=== PATIENT | male | born 1965 | race Caucasian/White ===

== ENCOUNTER → 2016-11-24 | Outpatient (CLI) | payer OTHER ==
[~2016-11-24] MED LIST: ALBU17AE3 IH; ASPI-892 PO; ATOR10TA66 PO; CEPH-38 PO; CEPH500C PO; CHOL500050 PO; COLC0.6T7 PO; CYCL10TA9 PO; DOXY100C2 PO; GABA-486 PO; HYDR-34 PO; HYDR25TA4 PO; HYDR28CR10 TP; IBP800T PO; LISI10TA PO; LOVA40TA2 PO; NAPR-243 PO; NAPR550T PO; PNT40TEC PO; allopurinol
== END ==
LOC: RAD 15:02
PROVIDERS: ATTEND Nurse Practitioner Community Health
DX: S49.91XD Unspecified injury of right shoulder and upper arm, subsequent encounter (principal); X58.XXXA Exposure to other specified factors, initial encounter; Y99.8 Other external cause status

== ENCOUNTER → 2019-02-07 | Outpatient (CLI) | payer OTHER ==
--- NOTE | 2019-02-07 11:02 | Diagnostic Imaging Report ---
Lumbar spine at 10:00 a.m. INDICATION: Chronic back pain. FINDINGS: AP, lateral and spot lateral views were obtained. The lateral view shows slight straightening of the lumbar spine. This appearance is similar to the prior exam of 08/18/2015. The intervertebral spaces are fairly well-maintained although there is mild narrowing of the disc space at L5-S1. This finding is also similar to the prior exam. There is no fracture or acute bony abnormality evident. There is no sign of a paraspinal mass. There is mild symmetrical sclerosis of the sacroiliac joints. IMPRESSION: 1. There is no evidence for an acute bony abnormality. 2. If there is clinical concern regarding spinal stenosis or nerve root encroachment, then MRI would be recommended for further evaluation. Dictated by: Dictated on workstation # [id number]
--- NOTE | 2019-02-07 13:02 | Diagnostic Imaging Report ---
Left knee at 959 hours. INDICATION: Knee pain. AP and lateral views are obtained. FINDINGS: There is no fracture, dislocation or acute bony abnormality evident. The knee joint is fairly well maintained and appears similar to the prior exam of 12/04/2011. The soft tissues are unremarkable. IMPRESSION: 1. There is no evidence for an acute bony abnormality. 2. If there is clinical concern regarding internal derangement, then MRI would be recommended for further evaluation. Dictated by: Dictated on workstation # [id number]
== END ==
LOC: RAD 09:25
PROVIDERS: ATTEND Surgery
DX: Z02.71 Encounter for disability determination (principal); M25.562 Pain in left knee; G89.29 Other chronic pain; M54.9 Dorsalgia, unspecified
CPT/HCPCS: 72100; 73560

== ENCOUNTER 2021-03-15 22:31 | Emergency (ER) | payer SELFPAY ==
[~2021-03-15] VITALS: Ht 165 cm; Wt 89.2 kg
[2021-03-15 22:37] VITALS: BP 239/123
== END 2021-03-15 23:23 | disposition left against medical advice (07) ==
LOC: EDUNIT# 22:31 → ER 22:32
DX: M79.671 Pain in right foot (principal)
CPT/HCPCS: 99281

== ENCOUNTER 2023-01-08 19:56 | Emergency (ER) | payer OTHER ==
[~2023-01-08] VITALS: Ht 167.7 cm; Wt 102.0 kg
[2023-01-08 20:22] VITALS: BP 188/115
--- NOTE | 2023-01-08 20:40 | ED Cough/URI ---
General Chief Complaint: Cough/Cold/Flu Symptoms Stated Complaint: COUGHING/SOA Source: patient Exam Limitations: no limitations (VELMA GEORGES) History of Present Illness Date Seen by Provider: Jan 08, 2023 Time Seen by Provider: 20:39 Initial Comments Patient is a 57 who presents ED with shortness of breath and a dry cough. Patient reports a dry cough that started yesterday. Denies of any sputum production. Started having shortness of breath with a cough today. Denies of any specific chest pain, abdominal pain vomit, diarrhea, fever, chills, headache sore throat. History of hypertension currently on a blood pressure medication which she cannot recall. States his blood pressure has been running around 160 systolic. He wears compression socks to help with some swelling in his lower extremity. Denies history of CHF, coronary artery disease, COPD. History of asthma. Denies of any wheezing. (VELMA GEORGES) Allergies and Home Medications Allergies Coded Allergies: Penicillins (Unverified Allergy, Mild, RASH, 12/25/08) propoxyphene (Unverified Allergy, Mild, RASH, 12/25/08) morphine (Unverified Adverse Reaction, Intermediate, PSYCH, 01/30/09) Patient Home Medication List Home Medication List Reviewed: Yes (VELMA GEORGES) Atorvastatin Calcium (Lipitor Tablet) 10 Mg Tablet, 20 MG PO HS, (Reported) Entered as Reported by: SHADI PINEDA on 04/28/142151 Cholecalciferol (Vitamin D3) (Vitamin D) 5,000 Unit Capsule, 5,000 UNIT PO DAILY, (Reported) Entered as Reported by: SANDY DOWNING on 12/30/15 135 Gabapentin (Gabapentin) 100 Mg Capsule, 100 MG PO TID, (Reported) Entered as Reported by: SANDY DOWNING on 12/30/15 1353 Hydrochlorothiazide (Hydrochlorothiazide) 25 Mg Tablet, 25 MG PO DAILY, (Reported) Entered as Reported by: SANDY DOWNING on 12/30/15 135 Lisinopril (Zestril) 10 Mg Tablet, 20 MG PO DAILY, (Reported) Entered as Reported by: CIRILO ROSENTHAL on 12/25/088 Lovastatin (Lovastatin) 40 Mg Tablet, 20 MG PO DAILY, (Reported) Entered as Reported by: DARLENE GAMBINO on 05/08/112038 Review of Systems Review of Systems Constitutional: No chills, No diaphoresis, No malaise, No weakness EENTM: No blurred vision, No double vision Respiratory: cough, short of breath Gastrointestinal: No abdominal pain, No diarrhea, No nausea, No vomiting Genitourinary: No decreased output, No discharge Musculoskeletal: No back pain, No joint pain Skin: No change in color Psychiatric/Neurological: Denies Depressed, Denies Headache, Denies Numbness, Denies Paresthesia Hematologic/Lymphatic: Denies Anemia (VELMA GEORGES) All Other Systems Reviewed Negative Unless Noted: Yes (VELMA GEORGES) Past Nmhhzdo-Mvnsvi-Rnllfv Hx Past Medical History Surgery/Hospitalization HX: htn, neuropathy, high lipids Asthma High Cholesterol, Hypertension Reproductive Disorders: No (VELMA GEORGES) Physical Exam Vital Signs - First Documented 01/08/23 20:22 Temp 37.0 Pulse 100 Resp 22 B/P (MAP) 188/115 (139) Pulse Ox 97 O2 Delivery Room Air (AARON MENDOZA MD) Capillary Refill : (VELMA GEORGES) Height: 5'8" Weight: 200lbs. oz. [id number]; 32.00 BMI Method:Stated General Appearance: WD/WN, no apparent distress Eyes: Bilateral Eye Normal Inspection, Bilateral Eye PERRL, Bilateral Eye EOMI HEENT: PERRL/EOMI, normal ENT inspection, TMs normal, pharynx normal Neck: non-tender, full range of motion, supple Respiratory: chest non-tender, lungs clear, normal breath sounds, no respiratory distress, no accessory muscle use Cardiovascular: regular rate, rhythm, no edema, no gallop, no JVD Gastrointestinal: normal bowel sounds, non tender, soft, no organomegaly Extremities: normal range of motion, non-tender, normal inspection, no pedal edema, no calf tenderness, other (Mild pitting edema bilateral lower extremity. 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 He has no other complaints. Patient was hypertensive on arrival 188/115. History of hypertension. Patient refused COVID swab. Suggest checking for COVID. Due to the hypertension short of breath and mild lower leg swelling suggest cardiac work-up. Patient refused. He is requesting something only for his cough. He was told that he could do honey and would like to try this at this time. Discussed potential complications such as CHF, respiratory failure, cardiac de ath.,. Patient acknowledged. He states he will return if symptoms worsen. Patient remained hypertensive. Patient did not want any intervention. Patient signed out AMA. (VELMA GEORGES) Impression Primary Impression: Shortness of breath Additional Impression: Uncontrolled hypertension Disposition: AGAINST MEDICAL ADVICE Condition: Against Medical Advice Departure-Patient Inst. Decision time for Depature: 20:39 (VELMA GEORGES) Referrals: EZIO ALCALA MD (PCP) Primary Care Physician [facility] (Family) Primary Care Physician Patient Instructions: Shortness of breath (dyspnea) ATTENDING PHYSICIAN NOTE: I was physically present as attending physician in the emergency department during the care of this patient, but I was not directly involved in the decision making or delivery of care for this patient. (AARON MENDOZA MD) VELMA GEORGES Jan 08, 2023 20:40 AARON MENDOZA MD Jan 09, 2023 07:30
== END 2023-01-08 20:49 | disposition left against medical advice (07) ==
LOC: EDUNIT# 19:56 → ER 19:58
DX: R06.02 Shortness of breath (principal); I10 Essential (primary) hypertension; Z79.899 Other long term (current) drug therapy; Z28.310 Unvaccinated for COVID-19
CPT/HCPCS: 99282